=== PATIENT | female | born 1960 | race Asian ===

== ENCOUNTER 2018-05-12 11:25 | Emergency (ER) | payer OTHER ==
[2018-05-12 11:33] VITALS: BP 141/76
--- NOTE | 2018-05-12 11:55 | ED Physician Documentation ---
PD HPI SKIN - Stated complaint Stated Complaint: RASH/FEMALE - Chief complaint Chief Complaint: General - History obtained from History obtained from: Patient - History of Present Illness Timing - onset: Yesterday Timing - duration: Days (1-2 (nursing notes say 2 weeks, but was just couple of days)) Timing - details: Gradual onset, Waxing and waning Location: Other Quality / character: Itchy, Burning Associated symptoms: No: Fever, Myalgias, N/V/D Contributing factors: No: Exposed to medication, Exposed to food, Exposed to soap / lotion, Recent illness Similar symptoms before: Has not had sx before Recently seen: Not recently seen Review of Systems Constitutional: denies: Fever, Chills, Myalgias Nose: denies: Rhinorrhea / runny nose, Congestion Throat: denies: Sore throat Cardiac: denies: Chest pain / pressure, Palpitations Respiratory: denies: Dyspnea, Cough GI: denies: Abdominal Pain, Nausea, Vomiting, Diarrhea PD PAST MEDICAL HISTORY - Past Medical History Past Medical History: Yes Cardiovascular: Hypertension - Past Surgical History Past Surgical History: No - Present Medications Home Medications: Ambulatory Orders Medication Instructions Recorded Confirmed Cetirizine [ZyrTEC] 10 mg PO DAILY #20 tablet 05/12/18 Dexamethasone [Decadron] 4 mg PO DAILY #5 tablet 05/12/18 Telmisartan 20 mg PO 05/12/18 diphenhydrAMINE [Benadryl] 25 mg PO Q4-6H PRN #30 capsule 05/12/18 - Allergies Allergies/Adverse Reactions: Allergies Allergy/AdvReac Type Severity Reaction Status Date / Time No Known Drug Allergies Allergy Verified 05/12/18 11:33 - Social History Does the pt smoke?: No Smoking Status: Never smoker Does the pt drink ETOH?: No Does the pt have substance abuse?: No - Immunizations Immunizations are current?: Yes - POLST Patient has POLST: No PD ED PE NORMAL - Vitals Vital signs reviewed: Yes - General General: Alert and oriented X 3, No acute distress, Well developed/nourished - HEENT HEENT: Pharynx benign - Neck Neck: Supple, no meningeal sign, No adenopathy - Cardiac Cardiac: RRR, No murmur - Respiratory Respiratory: Clear bilaterally - Abdomen Abdomen: Soft, Non tender - Derm Derm: Normal color, Warm and dry, Other (hives appearing rash in axillary and crural areas. No vesicles. No skin breakdown. Hands and feet normal. ) Results - Vitals Vitals: Vital Signs - 24 hr 05/12/18 11:29 Temperature 37.1 C Heart Rate 73 Respiratory 15 Rate Blood Pressure 141/76 H O2 Saturation 98 Oxygen O2 Source Room air PD MEDICAL DECISION MAKING - ED course Complexity details: considered differential (The rash has small hive appearance without any pustules nor abscess nor drainage. I believe it is an allergic reaction systemically manifesting in the warm creases initially.), d/w patient Departure - Departure Disposition: Home, Self Care Clinical Impression: Allergic reaction Qualifiers: Encounter type: initial encounter Qualified Code(s): T78.40XA - Allergy, unspecified, initial encounter Condition: Stable Record reviewed to determine appropriate education?: Yes Instructions: ED Allergic Reaction General Other Follow-Up: [facility] [Provider Group] Prescriptions: Cetirizine [ZyrTEC] 10 mg PO DAILY #20 tablet Dexamethasone [Decadron] 4 mg PO DAILY #5 tablet diphenhydrAMINE [Benadryl] 25 mg PO Q4-6H PRN #30 capsule PRN Reason: Itching Comments: I think this is an allergic reaction just presenting in the warm areas (armpits and groin). Use the oral steroid Decadron daily for 5 more days. Cetirizine antihistamine daily for 1-2 weeks. Add Benadryl every 4-6 hours if needed for itchiness. Recheck if not improved over the next several days. If it continues or does go away then comes back again in the near future, you may need to then undergo some allergy testing or such. Most of these will go away and stay away. Discharge Date/Time: 05/12/18 12:29
[2018-05-12] MEDS ORDERED: CETIRIZINE 10 MG TABLET PO STA (12:15)
[2018-05-12] MEDS ORDERED: DEXAMETHASONE 10 MG/ML VIAL PO STA (12:15)
[2018-05-12] MEDS ORDERED: diphenhydrAMINE 25 MG CAPSULE PO STA (12:15)
== END 2018-05-12 12:29 | disposition home or self-care (01) ==
LOC: ED 11:25
DX: T78.40XA Allergy, unspecified, initial encounter (principal); I10 Essential (primary) hypertension
CPT/HCPCS: 99283; A9270